=== PATIENT | female | born 1995 | race Two or more races ===

== ENCOUNTER 2024-10-16 21:29 | Emergency (ER) | payer OTHER, SELFPAY ==
[2024-10-16 21:32] VITALS: BP 127/75
[2024-10-16 21:58] LABS: % Basophils 0.6 % (0-2); % Eosinophils 1.6 % (0-6); % Immature Granulocytes 0.1 % (0-0.5); % Lymphocytes 25.6 % (20.5-51.1); % Monocytes 7.7 % (1.7-9.3); % Neutrophils 64.4 % (42.2-75.2); Absolute Basophils 0.1 10^3/uL (0-0.2); Absolute Eosinophils 0.2 10^3/uL (0-0.7); Absolute Lymphocytes 2.7 10^3/uL (1.2-3.4); Absolute Monocytes 0.8 10^3/uL (0.1-0.6); Absolute Neutrophils 6.8 10^3/uL (1.4-6.5); Hemoglobin 12.3 g/dL (12.0-16.0); Mean Corp Hgb Conc. 32.4 g/dL (33.0-37.0); Mean Corpuscular Hgb 27.5 pg (27.0-31.0); Mean Platelet Volume 11.1 fL (7.4-10.4); Nucleated Red Blood Cells % 0 %; Platelet Count 302 10^3/uL (130-400); Red Blood Cell Count 4.47 10^6/uL (4.20-5.40); Red Cell Dist. Width 13.2 % (11.5-14.5); White Blood Cell Count 10.6 10^3/uL (4.8-10.8)
[2024-10-16 22:13] LABS: HCG, Serum Qualitative Screen Negative
[2024-10-16 22:19] LABS: ALT (SGPT) 48 U/L (0-35); AST (SGOT) 35 U/L (14-36); Albumin 4.6 g/dl (3.5-5.0); Alkaline Phosphatase 93 U/L (38-126); Blood Urea Nitrogen 7 mg/dl (7-17); Calcium 9.5 mg/dl (8.4-10.2); Carbon Dioxide 21 mmol/L (22-30); Chloride 106 mmol/L (98-107); Glucose 95 mg/dl (70-99); Sodium 139 mmol/L (135-145); Total Bilirubin 0.9 mg/dl (0.2-1.3); Total Protein 7.3 g/dl (6.3-8.2); eGFR > 60.00
[2024-10-17 01:28] VITALS: BP 122/81; BMI 41.6
[2024-10-17 01:36] LABS: Urine Albumin 1+ (Neg - Trace); Urine Bilirubin Negative (Negative); Urine Character Clear (Clear); Urine Color Yellow; Urine Glucose Negative (Negative); Urine Ketone Negative (Negative); Urine Leukocyte 2+ (Negative); Urine Nitrite Negative (Negative); Urine Occult Blood Negative (Negative); Urine Specific Gravity 1.025 (<1.030); Urine Urobilinogen Negative (Neg - 1+)
[2024-10-17 02:03] LABS: Urine Amorphous Seen; Urine Mucus Moderate; Urine Squamous Cell >30 /LPF (Few)
[2024-10-17 02:04] LABS: Urine Bacteria Many (Negative); Urine White Cell 40-50 /HPF (0-5)
--- NOTE | 2024-10-17 02:26 | ED.GENMED ---
History of Present Illness
General
Chief Complaint: Urinary Symptoms
Source: patient
Exam Limitations: none
Time Seen by Provider: 10/17/24 01:24
Nursing documentation reviewed up to this point in time: agreed with
History of Present Illness
History of Present Illness:
Pleasant 29-year-old female presents with bilateral flank pain. She states that her left side hurts more than the right. This began several hours prior to arrival. Patient does have some burning with urination. She has a history of kidney stones
but states that this pain is less severe that she remembers with her most recent kidney stone. Denies fever, chills, nausea or vomiting.
Past History
Past History
ED Past Medical History: Hypothyroidism and Psychiatric (Anxiety)
ED Past Surgical History: Cholecystectomy
Social History
Tobacco: Non-smoker
Review of Systems
Review of Systems
Allergies reviewed?: Yes
All Other Systems: ROS reviewed and negative except as documented in HPI and ROS
Constitutional: Reports no symptoms
EENT: Reports no symptoms
Respiratory: Reports no symptoms
Cardiac: Reports no symptoms
ABD/GI: Reports no symptoms
: Reports dysuria and flank pain
Musculoskeletal: Reports no symptoms
Skin: Reports no symptoms
Neurological: Reports no symptoms
Endocrine: Reports no symptoms
Hematologic/Lymphatic: Reports no symptoms
Psychiatric: Reports no symptoms
Phy Exam
General Physical Exam
General Presentation: well appearing and no apparent distress
General Skin: warm and dry
General Habitus: normal
General Mental: alert
General Hydration: appears well hydrated
ENT Exam
ENT Exam: EOMI, pharynx normal, neck supple and normocephalic
Eye Exam
Eye Exam: PERRL, cornea clear and conjunctiva normal
Cardiovascular Exam
Cardiovascular Exam: regular rate/rhythm, no edema, no murmur and normal peripheral pulses
Pulmonary Exam
Pulmonary Exam: lungs clear, no respiratory distress, no rales, no crackles, no rhonchi, no stridor, no wheezing and no cough
Gastrointestinal Exam
Gastrointestinal Exam: normal bowel sounds, non tender, soft, no organomegaly, no pulsatile mass and non distended
Neurological Exam
Neurological Exam: alert, oriented x3, no motor deficits and speech normal
Musculoskeletal Exam
Musculoskeletal Exam: back tenderness (Left CVA tenderness) and neuro vasc intact
Skin Exam
Skin Exam: normal color, warm/dry, no rash and no petechia
Psychiatric Exam
Psychiatric Exam: normal mood/affect
Course
Orders/Labs/Results
Orders:
Orders
10/16/24 21:35
Test Result ONCE
10/16/24 21:47
Complete Blood Count/With Diff Urgent
Comprehensive Metabolic Panel Urgent
HCG, Serum Qualitative Screen Urgent
10/17/24 01:26
Urinalysis Reflex To Culture Urgent
Date Specimen was Collected: 10/17/24
Time Specimen was Collected: 01:23
Urine Microscopic Reflex Cult Urgent
Urine Culture Urgent
KD Source: U
Specimen Description:
Date Specimen was Collected: 10/17/24
Time Specimen was Collected: 01:23
10/17/24 02:25
CT Abd/pel Without Iv Or Oral Urgent
Comment:
Reason For Exam: left flank pain,hx of kidney stones
Cephalexin Monohydrate [Keflex] 500 mg PO NOW STA
Ketorolac [Toradol] 30 mg IM NOW STA
10/17/24 05:24
Cephalexin Monohydrate [Keflex] 500 mg PO NOW STA
Abnormal Lab Results
10/16/24 10/17/24
21:47 01:26
MCHC 32.4 L g/dL
(33.0-37.0)
MPV 11.1 H fL
(7.4-10.4)
Absolute Neuts (auto) 6.8 H 10^3/uL
(1.4-6.5)
Absolute Monos (auto) 0.8 H 10^3/uL
(0.1-0.6)
Carbon Dioxide 21 L mmol/L
(22-30)
ALT 48 H U/L
(0-35)
Leukocyte Esterase Rfl 2+ A
(Negative)
Urine RBC 3-6 A /HPF
(0-2)
Urine WBC (Reflex) 40-50 A /HPF
(0-5)
Urine Bacteria (Reflex) Many A
(Negative)
Urine Albumin (Reflex) 1+ A
(Neg - Trace)
10/16/24 21:47
10/16/24 21:47
Vital Signs
Initial and Last Documented VS:
Initial Vital Signs
Temp Pulse Resp BP Pulse Ox
98.1 F 81 16 127/75 100
10/16/24 21:32 10/16/24 21:32 10/16/24 21:32 10/16/24 21:32 10/16/24 21:32
Last Documented Vital Signs
Temp Pulse Resp BP Pulse Ox
98.1 F 74 18 112/72 98
10/16/24 21:32 10/17/24 05:34 10/17/24 05:34 10/17/24 05:34 10/17/24 05:34
*Critical Care Note
Total Time (30-74mins, 75-104mins- exclusive of procedures): Not Applicable
Update Note
Update Note:
CT abdomen and pelvis without IV contrast
Comparison: March 21, 2023
IMPRESSION:
No obstructive uropathy or perinephric stranding. No renal or ureteral stones. Relatively decompressed bladder.
Cholecystectomy.
Stool-filled rectum, distended up to 5.2 cm. No bowel wall thickening, obstruction or free air. Normal appendix right lower quadrant.
Patient resting comfortably, in no acute distress.
Discussed CAT scan findings.
Patient has dysuria. Contaminated urine sample but will treat with Keflex.
Will await urine cultures
ED Attending Note
-
Portions of this chart may have been created with voice recognition software.� Occasional wrong word or��sound alike� substitutions may have occurred due to the inherent limitations of voice recognition software.
Discharge Plan
Departure
Patient Disposition: Home (Routine Discharge)
Date of Disposition: 10/17/24
Time of Disposition:
Patient with high blood pressure during this ER visit?: Yes
Condition: Good
Discharge Problem:
UTI (urinary tract infection), Abdominal pain
Instructions: Urinary tract infections in adults, BLOOD PRESSURE
Prescriptions:
New
cephalexin 500 mg capsule
500 mg PO BID 7 Days Qty: 14 0RF
No Action
ibuprofen 600 MG tablet
600 mg PO Q6 Qty: 15 0RF
Referrals:
Rhonda Hubbard CRNP [Family Provider] -
Activity Restrictions/Additional Instructions:
It was a pleasure meeting you and taking part in your care. We hope for your continued healing and wellness.
Please read discharge instructions in their entirety. However, they are for general education and may not describe your exact diagnosis at discharge. Information on your ER visit and medical conditions were discussed with you along with appropriate
follow up information...
If indicated, please take your medications as instructed and indicated on discharge paperwork.
Please schedule a follow up appointment as directed. Call to schedule an appointment
Please return to the emergency department with ANY change in, persisting, or worsening of symptoms. If any of your symptoms do not improve, or persist, or become more severe within 6-12 hours, please return to the emergency department for further
care.
Please return to the emergency department if you develop a headache, neck pain/stiffness, fever greater than 100.4F, chest pain, shortness of breath, persistent nausea, vomiting, slurred speech, difficulty walking, numbness/tingling, weakness, signs
of infection or any other symptoms that are worrisome to you.
If you have any questions or concerns please do not hesitate to call the Hospital at or E-mail me directly at [email or web address]
Interventions
Interventions:
*Risk Screen - Suicide Last Done: 10/16/24 21:32
*General Assessment Last Done: 10/16/24 21:32
*Neglect/Abuse Screening Last Done: 10/16/24 21:32
ED- Fall Risk Assessment Last Done: 10/17/24 01:28
*ED COVID-19 Vaccine History Last Done: 10/17/24 01:28
*Nursing Disposition Last Done: 10/17/24 05:39
ED-Female Genitourinary Assessment Last Done: 10/17/24 01:31
Discharge Date and Time
Discharge Date/Time: 10/17/24 05:39
Print Language: RWANDAN
[2024-10-17] MEDS: TORADOL 30 MG IM (02:35)
[2024-10-17] MEDS: KEFLEX 500 MG PO (02:35)
[2024-10-17 05:34] VITALS: BP 112/72
== END 2024-10-17 05:39 | disposition home or self-care (01) ==
LOC: EMR 21:29
PROVIDERS: Student in an Organized Health Care Education/Training Program; EMERGENCY PHYSICIAN Student in an Organized Health Care Education/Training Program; FAMILY PHYSICIAN Nurse Practitioner
DX: N39.0 Urinary tract infection, site not specified (principal); R10.9 Unspecified abdominal pain; R03.0 Elevated blood-pressure reading, without diagnosis of hypertension; E03.9 Hypothyroidism, unspecified; F41.9 Anxiety disorder, unspecified; Z90.49 Acquired absence of other specified parts of digestive tract; Z87.442 Personal history of urinary calculi
CPT/HCPCS: 99284; 96372; 74176; 80053; 81003; 81015; 84703; 85025; 87086

== ENCOUNTER → 2025-04-06 11:15 | Outpatient (REF) | payer OTHER, SELFPAY | LOC: HWRAD 11:15 | PROVIDERS: ATTENDING PHYSICIAN Nurse Practitioner | DX: E04.1 Nontoxic single thyroid nodule (principal) | CPT/HCPCS: 76536 ==